=== PATIENT | female | born 1965 | race Asian ===

== ENCOUNTER 2016-07-03 17:14 | Emergency (ER) | payer BC ==
[2016-07-03] MEDS ORDERED: NS 0.9% 1000 ML* 2,000 ML IV ONE (17:37)
[2016-07-03 18:08] LABS: Hematocrit 39 % (35-47); Hemoglobin 13.1 g/dl (12.0-16.0); Mean Corpuscular HGB Conc 33 g/dl (31-36); Mean Corpuscular Hemoglobin 30 pg (27-31); Mean Corpuscular Volume 90 fL (80-97); Mean Platelet Volume 9 um3 (7.4-10.4); Red Blood Count 4.34 10^6/ul (4.0-5.4); Red Cell Distribution Width 12 % (10.5-15); White Blood Count 4.8 10^3/ul (3.5-10.8)
--- NOTE | 2016-07-03 18:17 | RAD ---
INDICATION: Weakness COMPARISON: October 18, 2015 TECHNIQUE: PA and lateral dual-energy views were obtained. FINDINGS: Bones/Soft Tissues: There are no acute bony findings. Cardiomediastinal: The cardiomediastinal silhouette is normal. Lungs: There are no infiltrates. Pleura: There are no pleural effusions. Other: None IMPRESSION: NO ACTIVE DISEASE
[2016-07-03 18:25] LABS: ALT 27 U/L (7-52); AST 18 U/L (13-39); Albumin 4.3 g/dL (3.2-5.2); Alkaline Phosphatase 95 U/L (34-104); Anion Gap 5 mmol/L (2-11); BUN/Creatinine Ratio 25.4 (8-20); Blood Urea Nitrogen 15 mg/dL (6-24); C Reactive Protein < 1.00 mg/L (< 5.00); CO2 Carbon Dioxide 26 mmol/L (22-32); Calcium 9.1 mg/dL (8.6-10.3); Chloride 110 mmol/L (101-111); Creatine Kinase 109 U/L (10-223); EGFR African American 137.1 (>60); EGFR Non-African American 106.6 (>60); Globulin 2.7 g/dL (2-4); Glucose 157 mg/dL (70-100); Magnesium 2.1 mg/dL (1.9-2.7); Potassium 3.5 mmol/L (3.5-5.0); Sodium 141 mmol/L (133-145)
[2016-07-03 19:02] LABS: TSH (Thyroid Stimulating Horm) 1.62 mcIU/mL (0.34-5.60)
[2016-07-03 20:12] LABS: Urine Bilirubin Negative (Negative); Urine Glucose Negative (Negative); Urine Nitrite Negative (Negative)
--- NOTE | 2016-07-03 20:27 | ED ---
Syncope/Near Syncope - HPI Summary HPI Summary: Patient BIBA for feelings of generalized weakness while shopping this afternoon. She states she feels weak all over and feels funny in the chest. There is a language barrier. Patient expresses that she has had a similar episode in the past and diagnosed with allergies and given an albuterol inhaler. Today, she denies SOB. She continues to take a daily allergy medication, but has not needed her albuterol inhaler for some time. Denies chest pain or pressure, just notes it feels funny. Denies dizziness or MURDOCK. Denies ear pain, visual disturbances or throat pain. Denies N/V/D/C. Denies cough or recent illness or sick contacts. Patient is otherwise healthy. Although patient felt weak, she did not fall or have LOC. She does not feel confused or have memory loss. Patient states she ate breakfast and lunch today and feels she has drank enough fluids. - History Of Current Complaint Chief Complaint: EDWeakness Time Seen by Provider: 07/03/16 17:22 Hx Obtained From: Patient Onset/Duration: Sudden Onset Timing: Constant Context: Witnessed Associated Head Trauma: No Aggravating Factor(s): Nothing Alleviating Factor(s): Nothing Associated Signs And Symptoms: Chest Pain - "funny feeling", Weakness Related History: Similar Episode/Dx as - last year and diagnosed with asthma - Risk Factors Cardiac Risk Factors: Negative Dysrhythmia Risk Factors: Age Greater Than 45 Risk Factor(s): Negative - Allergies/Home Medications Allergies/Adverse Reactions: Allergies Allergy/AdvReac Type Severity Reaction Status Date / Time No Known Allergies Allergy Verified 05/06/14 09:37 PMH/Surg Hx/FS Hx/Imm Hx Previously Healthy: Yes Endocrine/Hematology History: Denies: Hx Diabetes, Hx Thyroid Disease Cardiovascular History: Denies: Hx Hypertension Respiratory History: Denies: Hx Asthma, Hx Chronic Obstructive Pulmonary Disease (COPD) GI History: Denies: Hx Ulcer - Surgical History Surgery Procedure, Year, and Place: x1 - Immunization History Immunizations Up to Date: Unable to Obtain/Confirm Infectious Disease History: No Infectious Disease History: Denies: Hx Hepatitis, Hx Human Immunodeficiency Virus (HIV), Traveled Outside the [place] in Last 30 Days - Social History Occupation: Employed Full-time Lives: With Family Alcohol Use: None Hx Substance Use: No Substance Use Type: Reports: None Hx Tobacco Use: No Smoking Status (MU): Never Smoked Tobacco Do You Chew or Dip Tobacco: No Review of Systems Constitutional: Negative ENT: Negative Positive: Chest Pain - funny feeling in chest Gastrointestinal: Negative Positive: see HPI, frequency Musculoskeletal: Negative Skin: Negative Positive: Weakness Psychological: Normal All Other Systems Reviewed And Are Negative: Yes Physical Exam Triage Information Reviewed: Yes Vital Signs On Initial Exam: Initial Vitals Temp Pulse Resp BP Pulse Ox 98.5 F 64 16 127/65 97 07/03/16 17:36 07/03/16 17:36 07/03/16 17:36 07/03/16 17:36 07/03/16 17:36 Vital Signs Reviewed: Yes Appearance: Positive: Well-Appearing, Well-Nourished Skin: Positive: Warm, Skin Color Reflects Adequate Perfusion Eyes: Positive: EOMI, ALENA, Conjunctiva Clear Neck: Positive: Supple, No Lymphadenopathy Respiratory/Lung Sounds: Positive: Breath Sounds Present Cardiovascular: Positive: Normal, RRR, Pulses are Symmetrical in both Upper and Lower Extremities Abdomen Description: Positive: Nontender Bowel Sounds: Positive: Present Musculoskeletal: Positive: Normal, Strength/ROM Intact Neurological: Positive: Normal, Sensory/Motor Intact, Alert, Oriented to Person Place, Time, CN Intact II-III, Reflexes Intact, Normal Gait, Heel to Toe, Finger to Nose, Speech Normal Psychiatric: Positive: Normal AVPU Assessment: Alert - [place] Coma Scale Coma Scale Total: 15 Diagnostics - Vital Signs Vital Signs Temp Pulse Resp BP Pulse Ox 07/03/16 17:54 67 99 07/03/16 17:53 141/72 07/03/16 17:36 98.5 F 64 16 127/65 97 - Laboratory Lab Results: Lab Results 07/03/16 07/03/16 07/03/16 Range/Units 17:55 17:55 17:55 WBC 4.8 (3.5-10.8) 10^3/ul RBC 4.34 (4.0-5.4) 10^6/ul Hgb 13.1 (12.0-16.0) g/dl Hct 39 (35-47) % MCV 90 (80-97) fL MCH 30 (27-31) pg MCHC 33 (31-36) g/dl RDW 12 (10.5-15) % Plt Count 158 (150-450) 10^3/ul MPV 9 (7.4-10.4) um3 Neut % (Auto) 60.6 (38-83) % Lymph % (Auto) 30.7 (25-47) % [place] % (Auto) 6.7 (1-9) % Eos % (Auto) 1.3 (0-6) % Baso % (Auto) 0.7 (0-2) % Absolute Neuts (auto) 2.9 (1.5-7.7) 10^3/ul Absolute Lymphs (auto) 1.5 (1.0-4.8) 10^3/ul Absolute Monos (auto) 0.3 (0-0.8) 10^3/ul Absolute Eos (auto) 0.1 (0-0.6) 10^3/ul Absolute Basos (auto) 0 (0-0.2) 10^3/ul Absolute Nucleated RBC 0.01 10^3/ul Nucleated RBC % 0.1 INR (Anticoag Therapy) 0.90 (0.89-1.11) Sodium 141 (133-145) mmol/L Potassium 3.5 (3.5-5.0) mmol/L Chloride 110 (101-111) mmol/L Carbon Dioxide 26 (22-32) mmol/L Anion Gap 5 (2-11) mmol/L BUN 15 (6-24) mg/dL Creatinine 0.59 (0.51-0.95) mg/dL Est GFR ( Amer) 137.1 (>60) Est GFR (Non-Af Amer) 106.6 (>60) BUN/Creatinine Ratio 25.4 H (8-20) Glucose 157 H (70-100) mg/dL Calcium 9.1 (8.6-10.3) mg/dL Magnesium 2.1 (1.9-2.7) mg/dL Total Bilirubin 0.50 (0.2-1.0) mg/dL AST 18 (13-39) U/L ALT 27 (7-52) U/L Alkaline Phosphatase 95 (34-104) U/L Total Creatine Kinase 109 (10-223) U/L Troponin I 0.00 (<0.04) ng/mL C-Reactive Protein < 1.00 (< 5.00) mg/L Total Protein 7.0 (6.4-8.9) g/dL Albumin 4.3 (3.2-5.2) g/dL Globulin 2.7 (2-4) g/dL Albumin/Globulin Ratio 1.6 (1-3) TSH 1.62 (0.34-5.60) mcIU/mL Urine Color Urine Appearance Urine pH (5-9) Ur Specific [place] (1.010-1.030) Urine Protein (Negative) Urine Ketones (Negative) Urine Blood (Negative) Urine Nitrate (Negative) Urine Bilirubin (Negative) Urine Urobilinogen (Negative) Ur Leukocyte Esterase (Negative) Urine Glucose (Negative) 07/03/16 Range/Units 19:58 WBC (3.5-10.8) 10^3/ul RBC (4.0-5.4) 10^6/ul Hgb (12.0-16.0) g/dl Hct (35-47) % MCV (80-97) fL MCH (27-31) pg MCHC (31-36) g/dl RDW (10.5-15) % Plt Count (150-450) 10^3/ul MPV (7.4-10.4) um3 Neut % (Auto) (38-83) % Lymph % (Auto) (25-47) % [place] % (Auto) (1-9) % Eos % (Auto) (0-6) % Baso % (Auto) (0-2) % Absolute Neuts (auto) (1.5-7.7) 10^3/ul Absolute Lymphs (auto) (1.0-4.8) 10^3/ul Absolute Monos (auto) (0-0.8) 10^3/ul Absolute Eos (auto) (0-0.6) 10^3/ul Absolute Basos (auto) (0-0.2) 10^3/ul Absolute Nucleated RBC 10^3/ul Nucleated RBC % INR (Anticoag Therapy) (0.89-1.11) Sodium (133-145) mmol/L Potassium (3.5-5.0) mmol/L Chloride (101-111) mmol/L Carbon Dioxide (22-32) mmol/L Anion Gap (2-11) mmol/L BUN (6-24) mg/dL Creatinine (0.51-0.95) mg/dL Est GFR ( Amer) (>60) Est GFR (Non-Af Amer) (>60) BUN/Creatinine Ratio (8-20) Glucose (70-100) mg/dL Calcium (8.6-10.3) mg/dL Magnesium (1.9-2.7) mg/dL Total Bilirubin (0.2-1.0) mg/dL AST (13-39) U/L ALT (7-52) U/L Alkaline Phosphatase (34-104) U/L Total Creatine Kinase (10-223) U/L Troponin I (<0.04) ng/mL C-Reactive Protein (< 5.00) mg/L Total Protein (6.4-8.9) g/dL Albumin (3.2-5.2) g/dL Globulin (2-4) g/dL Albumin/Globulin Ratio (1-3) TSH (0.34-5.60) mcIU/mL Urine Color Straw Urine Appearance Clear Urine pH 5.0 (5-9) Ur Specific [place] 1.008 L (1.010-1.030) Urine Protein Negative (Negative) Urine Ketones Negative (Negative) Urine Blood Negative (Negative) Urine Nitrate Negative (Negative) Urine Bilirubin Negative (Negative) Urine Urobilinogen Negative (Negative) Ur Leukocyte Esterase Negative (Negative) Urine Glucose Negative (Negative) Result Diagrams: 07/03/16 17:55 07/03/16 17:55 Lab Statement: Any lab studies that have been ordered have been reviewed, and results considered in the medical decision making process. Course/Dx Course Of Treatment: Labs WNL. UA WNL. Patient still feeling weak. 1L fluids given. CXR OK. Patient discharged with follow up with PCP. Unable to determine cause of weakness. Patient exhibits no signs of stroke symptoms. Strength in upper and lower extremities +5. Mini mental exam WNL. Trops negative and EKG negative. Discussed with patient possibilities of different causes. Patient agrees to follow up. - Diagnoses Differential Diagnosis/HQI/PQRI: Positive: Coronary Artery Disease, Transient Ischemic Attack, Vasovagal Episode Provider Diagnoses: Weakness - Physician Notifications Instructed by Provider To: Have Pt Call For Appt. - call PCP Discharge - Discharge Plan Condition: Stable Disposition: HOME Patient Education Materials: Weakness (ED) Referrals: No Primary Care Phys,NOPCP [Primary Care Provider] - Additional Instructions: Follow up with PCP. If symptoms become worse, come back to ED. Drink plenty of fluids and rest.
[2016-07-03 21:51] VITALS: BP 127/70
== END 2016-07-03 21:49 | disposition home or self-care (01) ==
LOC: ED 17:14
DX: R53.1 Weakness (principal); R07.9 Chest pain, unspecified
CPT/HCPCS: 36415; 71020; 80053; 81003; 82550; 83735; 84443; 84484; 85025; 85610; 86140; 96360; 99283

== ENCOUNTER 2017-03-07 11:08 | Emergency (ER) | payer BC ==
--- NOTE | 2017-03-07 11:48 | UC ---
Dizzy HPI HPI Summary: Pt present to -dropped off by her sister. Pt reports recurrent episodes of dizziness x 2 months. PT states has seen her pcp and was dx wit GERD. Pt was taking omeprazole but did not help. Pt states she went back to her PCP but no cause was found. PT states she went to a new pcp 2 weeks ago- pt had an echocardiogram and lab work. PT scheduled for recheck in 1-2 weeks. PT states dizzy spells are becoming more frequent. STates she take a phone into bathroom because worried she may pass out. Pt states wakes at night and "Everything is spinning." Pt was unable to drive second to dizziness yesterday. PT states today she was in class at 3 when had episode - school RN sent for eval. PT denies nausea. PT states intermittent cp. no MURDOCK, vision changes. PT states during episodes sometime doesnt have clear thoughts. No medications. No n/v/d No fevers, chills. no dysuria, hematuria Pt's medications reviewed this visit - History Of Current Complaint Chief Complaint: UCDizziness Stated Complaint: DIZZY Time Seen by Provider: 03/07/17 11:37 Hx Obtained From: Patient Hx Last Menstrual Period: UNKNOWN Onset/Duration: Sudden Onset, Lasting Minutes Timing: Intermittent Episode Lasting - 5-10 minutes Severity Initially: Mild Severity Currently: Moderate Character: Head Spinning, Lightheaded Alleviating Factor(s): Nothing Associated Signs And Symptoms: Positive: Nausea, Chest Pain, Unsteady Gait - Allergies/Home Medications Allergies/Adverse Reactions: Allergies Allergy/AdvReac Type Severity Reaction Status Date / Time No Known Allergies Allergy Verified 03/07/17 11:29 PMH/Surg Hx/FS Hx/Imm Hx Previously Healthy: Yes GI/ History: Gastroesophageal Reflux - Surgical History Surgical History: Yes Surgery Procedure, Year, and Place: x1 - Family History Known Family History: Positive: Hypertension - Social History Occupation: Student Lives: With Family Alcohol Use: None Substance Use Type: None Smoking Status (MU): Never Smoked Tobacco Review of Systems Constitutional: Negative Skin: Negative Eyes: Negative ENT: Negative Respiratory: Negative Cardiovascular: Negative Gastrointestinal: Negative Neurovascular: Other - dizziness Musculoskeletal: Negative Neurological: Negative Psychological: Negative All Other Systems Reviewed And Are Negative: Yes Physical Exam Triage Information Reviewed: Yes Appearance: Well-Appearing, No Pain Distress, Well-Nourished Vital Signs: Initial Vital Signs Temp 98.6 F 03/07/17 11:18 Pulse 70 03/07/17 11:18 Resp 16 03/07/17 11:18 BP 118/79 03/07/17 11:18 Pulse Ox 99 03/07/17 11:18 Vital Signs Reviewed: Yes Eye Exam: Normal Eyes: Positive: Conjunctiva Clear ENT Exam: Normal ENT: Positive: Normal ENT inspection, Hearing grossly normal, Pharynx normal, TMs normal Dental Exam: Normal Neck exam: Normal Neck: Positive: Supple, Nontender, No Lymphadenopathy Respiratory Exam: Normal Respiratory: Positive: Chest non-tender, Lungs clear, Normal breath sounds, No respiratory distress, No accessory muscle use Cardiovascular Exam: Normal Cardiovascular: Positive: RRR, No Murmur, Pulses Normal Abdominal Exam: Normal Abdomen Description: Positive: Nontender, No Organomegaly, Soft Bowel Sounds: Positive: Present Musculoskeletal Exam: Normal Musculoskeletal: Positive: Strength Intact Neurological: Positive: Other: - CN 2- 12 intact and full + FNF n/l Full AROM ext x 4 no difficulty with speech, word finding Psychological Exam: Normal Skin Exam: Normal Diagnostics - EKG Cardiac Rhythm: Sinus: Normal Ectopy: None ST Segment: Normal Dizzy Course/Dx - Course Course Of Treatment: Pt with progressive episodes of dizziness - states gets chest discomfort with episodes. feels syncopal and difficult thought. No fever , chills. Pt with 2+ LE in urine. Pt with 2 waves of dizziness in exam room - non positional. No nystagmus. Pt not orthostatic. d/w pt - recommend futher eval in ED - pt in agreement. Pt's sister refuses to come for her. Will place IV. check glucose. IVF. EMS transfer - Differential Dx/Diagnosis Provider Diagnoses: dizziness, chest pain Discharge - Discharge Plan Condition: Stable Disposition: TRANS HIGHER LVL OF CARE FAC Patient Education Materials: Urinary Tract Infection in Women (ED), Dizziness ( ED) Referrals: No Primary Care Phys,NOPCP [Primary Care Provider] - Carina Briceño MD [Medical Doctor] - Additional Instructions: - The doctor that evaluated you today recommends you go to the emergency department at the hospital for further evaluation and testing. The doctor is concerned because you keep having repeat issues of dizziness and lightheadedness as well as occasional chest pain. It is recommended you go directly to the emergency department.
[2017-03-07 12:08] VITALS: BP 123/79
[2017-03-07] MEDS ORDERED: NS 0.9% 1000 ML* 1,000 ML IV ONE (12:14)
== END 2017-03-07 12:47 | disposition short-term general hospital (02) ==
LOC: UCEAST 11:08
DX: R42 Dizziness and giddiness (principal); R07.9 Chest pain, unspecified; R11.0 Nausea; R26.81 Unsteadiness on feet; Z32.02 Encounter for pregnancy test, result negative; K21.9 Gastro-esophageal reflux disease without esophagitis
CPT/HCPCS: 81003; 84702; 87086; 93005; 96360; 99213; G0463

== ENCOUNTER 2017-07-25 12:07 | Emergency (ER) | payer BC ==
[2017-07-25 12:19] VITALS: BP 133/66
--- NOTE | 2017-07-25 12:52 | UC ---
Cardiac HPI - HPI Summary HPI Summary: 52 yo female with the onset of chest pressure today initially severe now mild has felt generalized weakness no abd pain no sob feels anxious no diaphoresis no abd pain she attributes her symptoms to disagreements with her MD she refuses to go to the ER despite being told to by her physicians office - History of Current Complaint Chief Complaint: UCChestPain Stated Complaint: CHEST PRESSURE, WEAK Time Seen by Provider: 07/25/17 12:17 Hx Obtained From: Patient Hx Last Menstrual Period: UNKNOWN Onset/Duration: Gradual Onset, Lasting Hours Timing: Constant Initial Severity: Severe Current Severity: Mild Pain Intensity: 7 - currently 2 Chest Pain Location: Diffuse Character: Pressure/Squeezing Aggravating Factor(s): Nothing Alleviating Factor(s): Nothing Associated Signs & Symptoms: Positive: Chest Pain, Weakness - x 2 days - Allergy/Home Medications Allergies/Adverse Reactions: Allergies Allergy/AdvReac Type Severity Reaction Status Date / Time No Known Allergies Allergy Verified 07/25/17 12:19 PMH/Surg Hx/FS Hx/Imm Hx Previously Healthy: Yes Other History Of: Hepatitis B - ? - Surgical History Surgical History: Yes Surgery Procedure, Year, and Place: x1 - Family History Known Family History: Positive: Hypertension - Social History Alcohol Use: None Substance Use Type: None Smoking Status (MU): Never Smoked Tobacco Review of Systems Constitutional: Negative Skin: Negative Eyes: Negative ENT: Negative Respiratory: Negative Cardiovascular: Chest Pain Gastrointestinal: Negative Genitourinary: Negative Motor: Negative Neurovascular: Negative Musculoskeletal: Negative Neurological: Weakness Psychological: Negative Is Patient Immunocompromised?: No All Other Systems Reviewed And Are Negative: Yes Physical Exam Triage Information Reviewed: Yes Appearance: Well-Appearing, No Pain Distress, Well-Nourished Vital Signs: Initial Vital Signs Temp 98.2 F 07/25/17 12:11 Pulse 67 07/25/17 12:11 Resp 18 07/25/17 12:11 BP 133/66 07/25/17 12:11 Pulse Ox 99 07/25/17 12:11 Vital Signs Reviewed: Yes Eyes: Positive: Conjunctiva Clear ENT: Positive: Hearing grossly normal, Pharyngeal erythema, Uvula midline. Negative: Nasal congestion, Nasal drainage, Trismus, Muffled voice, Hoarse voice Neck: Positive: Supple, Nontender, No Lymphadenopathy Respiratory: Positive: Lungs clear, Normal breath sounds, No respiratory distress, No accessory muscle use Cardiovascular: Positive: RRR, No Murmur Abdomen Description: Positive: Nontender, No Organomegaly, Soft Musculoskeletal: Positive: ROM Intact, No Edema Neurological: Positive: Alert, Muscle Tone Normal Psychological Exam: Normal Skin Exam: Normal Diagnostics - EKG Cardiac Rate: NL Cardiac Rhythm: Sinus: Normal Ectopy: None ST Segment: Normal - Assessment/Plan Course Of Treatment: pt refused to go to the ER for further evalution. refused blood work. advised of risk of serious condition despite benign looking EKG - Clinical Impression Provider Diagnoses: atypical chest pain. weakness Discharge - Sign-Out/Discharge Documenting (check all that apply): Discharge - Discharge Plan Condition: Stable Disposition: HOME Patient Education Materials: Weakness (ED), Chest Pain (DC) Referrals: [facility] [Outside] (call this number to help you find a local MD) Additional Instructions: As discussed I feel that your symptoms should be worked up in the Emergency Room at the hospital If you change your mind please present there If symptoms worsen go to the ER call the number here for help finding a new doctor - Billing Disposition and Condition Condition: STABLE Disposition: HOME
== END 2017-07-25 13:02 | disposition home or self-care (01) ==
LOC: UCEAST 12:07
DX: R07.89 Other chest pain (principal); R53.1 Weakness
CPT/HCPCS: 99211; G0463

== ENCOUNTER 2018-06-19 11:02 | Emergency (ER) | payer BC ==
[2018-06-19 11:32] VITALS: BP 99/67
--- NOTE | 2018-06-19 11:51 | UC ---
Palpitation/Dysrhythmia HP - HPI Summary HPI Summary: Patient complains of several weeks of intermittent episodes of heart palpitations. She describes it as her heart jumping out of her chest. Episodes occur at least once daily and last for several seconds. No clear trigger. She denies chest pain, shortness of breath, nausea, sweats. She is healthy with no chronic medical problems. 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 She does endorse feeling particularly stressed these days. She denies any caffeine intake. - History of Current Complaint Chief Complaint: UCGeneralIllness Stated Complaint: HEART JUMPING Time Seen by Provider: 06/19/18 11:11 Hx Obtained From: Patient Hx Last Menstrual Period: UNKNOWN Onset/Duration: Lasting Weeks, Still Present Timing: Intermittent Episodes Lasting: - SECONDS Severity Initially: Moderate Severity Currently: None Pain Intensity: 0 Pain Scale Used: 0-10 Numeric Character: Pounding Aggravating Factor(s): Nothing Associated Signs & Symptoms: Positive: Negative - Allergy/Home Medications Allergies/Adverse Reactions: Allergies Allergy/AdvReac Type Severity Reaction Status Date / Time No Known Allergies Allergy Verified 07/25/17 12:19 PMH/Surg Hx/FS Hx/Imm Hx Previously Healthy: Yes Other History Of: Hepatitis B - ? - Surgical History Surgical History: Yes Surgery Procedure, Year, and Place: x1 - Family History Known Family History: Positive: Hypertension, Diabetes - Social History Alcohol Use: None Substance Use Type: None Smoking Status (MU): Never Smoked Tobacco Review of Systems All Other Systems Reviewed And Are Negative: Yes Constitutional: Positive: Negative Skin: Positive: Negative Respiratory: Positive: Negative Cardiovascular: Positive: Palpitations Gastrointestinal: Positive: Negative Neurological: Positive: Negative Physical Exam Triage Information Reviewed: Yes Appearance: Well-Appearing, No Pain Distress, Well-Nourished Vital Signs: Initial Vital Signs Temp 98.5 F 06/19/18 11:26 Pulse 68 06/19/18 11:26 Resp 16 06/19/18 11:26 BP 99/67 06/19/18 11:26 Pulse Ox 100 06/19/18 11:26 Vital Signs Reviewed: Yes Eyes: Positive: Conjunctiva Clear ENT: Positive: Hearing grossly normal Neck: Positive: Supple, Nontender, No Lymphadenopathy Respiratory Exam: Normal Cardiovascular Exam: Normal Abdomen Description: Positive: Nontender, Soft Musculoskeletal: Positive: No Edema Neurological: Positive: Alert Psychological: Positive: Age Appropriate Behavior Skin: Negative: Rashes Diagnostics - EKG Cardiac Rate: NL - 66BPM Cardiac Rhythm: Sinus: Normal Ectopy: None ST Segment: Normal Palpitations Course/Dx - Course Course Of Treatment: NORMAL PHYSICAL EXAM TODAY. PATIENT'S PALPITATIONS ARE LIKELY DUE TO HER RECENT STRESS. ENCOURAGED ADEQUATE HYDRATION AND REST. CHEST X-RAY DECLINED TODAY BY PATIENT BUT BLOOD DRAWN TO CHECK CBC, CMP AND TSH. PATIENT WILL MAKE A FOLLOW-UP APPOINTMENT WITH HER PCP THIS WEEK FOR FURTHER EVALUATION. TO THE ER IF SYMPTOMS WORSEN. - Differential Dx/Diagnosis Provider Diagnosis: Intermittent palpitations Discharge - Sign-Out/Discharge Documenting (check all that apply): Patient Departure All imaging exams completed and their final reports reviewed: No Studies - Discharge Plan Condition: Stable Disposition: HOME Patient Education Materials: Heart Palpitations (ED) Referrals: No Primary Care PhysTRACEY [Medical Doctor] - Sravan Guerrero MD [Primary Care Provider] - 1 Week Additional Instructions: YOUR SYMPTOMS ARE LIKELY DUE TO STRESS. BE SURE TO STAY WELL-HYDRATED AND RESTED. YOU HAVE DECLINED CHEST X-RAY TODAY BUT WE VIVIANE BLOOD TO CHECK YOUR BLOOD COUNT, COMPLETE METABOLIC PANEL AND THYROID LEVELS. WE WILL CALL YOU WITH ANY ABNORMAL RESULTS. GO TO THE ER WITHOUT FAIL IF YOU DEVELOP SHORTNESS OF BREATH, CHEST PAIN, NAUSEA, SWEATS, DIZZINESS OR ANY OTHER CONCERNING SYMPTOMS. FOLLOW-UP WITH YOUR PCP FOR FURTHER EVALUATION. - Billing Disposition and Condition Condition: STABLE Disposition: Home
[2018-06-19 16:12] LABS: ABS Basophils 0 10^3/ul (0-0.2); ABS Eosinophils 0.1 10^3/ul (0-0.6); ABS Lymphocytes 1.6 10^3/ul (1.0-4.8); ABS Monocytes 0.3 10^3/ul (0-0.8); ABS Neutrophils 2.5 10^3/ul (1.5-7.7); ABS Nucleated RBC 0 10^3/ul; Eosinophil % 1.2 %; Hematocrit 41 % (35-47); Hemoglobin 13.7 g/dl (12.0-16.0); Lymphocyte % 35.3 %; Mean Corpuscular HGB Conc 34 g/dl (31-36); Mean Corpuscular Hemoglobin 31 pg (27-31); Mean Corpuscular Volume 92 fL (80-97); Mean Platelet Volume 8.9 fL (7.4-10.4); Nucleated Red Blood Cells % 0; Platelet Count 161 10^3/ul (150-450); Red Blood Count 4.44 10^6/ul (4.00-5.40); Red Cell Distribution Width 12 % (10.5-15); White Blood Count 4.4 10^3/ul (3.5-10.8)
[2018-06-19 16:35] LABS: Albumin 4.5 g/dL (3.2-5.2); Calcium 9.5 mg/dL (8.6-10.3); Total Bilirubin 0.5 mg/dL (0.2-1.0)
[2018-06-19 16:41] LABS: BUN/Creatinine Ratio 25.4 (8-20); EGFR African American 110.6 (>60); EGFR Non-African American 91.4 (>60); Globulin 2.3 g/dL (2-4); Total Protein 6.8 g/dL (6.4-8.9)
[2018-06-19 17:11] LABS: TSH (Thyroid Stimulating Horm) 0.93 mcIU/mL (0.34-5.60)
== END 2018-06-19 12:16 | disposition home or self-care (01) ==
LOC: UCEAST 11:02
DX: R00.2 Palpitations (principal)
CPT/HCPCS: 36415; 80053; 84443; 85025; 99211; G0463